=== PATIENT | male | born 1990 | race Caucasian/White ===

== ENCOUNTER → 2018-09-07 | Outpatient (CLI) | payer OTHER ==
--- NOTE | 2018-09-07 17:18 | Diagnostic Imaging Report ---
EXAMINATION: Scrotal ultrasound CLINICAL INDICATION: Pain. COMPARISON: None. TECHNIQUE: Grayscale and color Doppler evaluation of the scrotum was performed in transverse and longitudinal planes. FINDINGS: The right testicle measures 4.3 x 1.4 x 2.4 cm. No masses or calcifications.. The right epididymis measures 0.9 cm. 0.4 cm cyst. No right hydrocele or varicocele. Normal flow to the right testicle, without torsion. The left testicle measures 4.1 x 1.7 x 2.4 cm. No masses or calcifications.. The left epididymis measures 0.8 cm. 0.4 cm cyst. No right hydrocele or varicocele. Normal flow to the right testicle, without torsion. The scrotum has a normal appearance, without focal lesions. Impression: Subcentimeter epididymal head cysts, otherwise unremarkable. Signed by: Dr. Ortega Epps M.D. on 09/07/2018 5:15 PM
--- NOTE | 2018-09-08 10:11 | Diagnostic Imaging Report ---
This report includes an Addendum and supersedes previous reports for this exam. PROCEDURE:EXTREMITY ULTRASOUND COMPARISON:None. INDICATIONS:Not provided. TECHNIQUE:Color duplex Doppler ultrasound evaluation analysis was performed in the usual manner. Evaluation of both inguinal regions fails to show evidence of a hernia or mass. CONCLUSION: No significant abnormality. Bird Miller D.O. Dictated by: Bird Miller D.O. on 09/08/2018 at 10:13 Electronically approved by: Bird Miller D.O. on 09/08/2018 at 10:13 ADDENDUM: Original interpretation of the study performed on 09/07/2018 was made off of static images obtained by the Technologist. This interpreting Radiologist was not in attendance for the study real-time. Patient returned to the ultrasound suite on 09/08/2018. Repeat scanning was accomplished by the manager organizational as well as the interpreting Radiologist. Provocative maneuvers were accomplished with the patient straining, Valsalva maneuver and sitting up while the transducer was in place over the inguinal regions. Study is positive for bilateral inguinal hernias; left side larger than right. Bird Miller D.O. Dictated by: Bird Miller D.O. on 09/08/2018 at 13:46 Electronically approved by: Bird Miller D.O. on 09/08/2018 at 13:46
== END ==
LOC: US 15:33
PROVIDERS: ATTEND Family Medicine
DX: R10.31 Right lower quadrant pain (principal)
CPT/HCPCS: 76870; 76882; 93976